=== PATIENT | male | born 1955 | race African-American/Black ===

== ENCOUNTER 2024-12-29 15:14 | Emergency (ER) | payer OTHER ==
[~2024-12-29] VITALS: Ht 175.3 cm; Wt 100.0 kg
[2024-12-29 15:17] VITALS: O2SAT 98
[2024-12-29 16:13] LABS: BASOPHILS % 1.3 % (0.0-2.0); EOSINOPHILS % 1.2 % (0.0-5.0); HEMATOCRIT. 45.9 % (42.0-52.0); HEMOGLOBIN. 15.5 g/dL (14.0-18.0); LYMPHOCYTES % 12.8 % (20.0-50.0); MEAN PLATELET VOLUME 8.5 fl (7.4-10.4); MONOCYTES % 9.7 % (2.0-8.0); NEUTROPHILS % 75.0 % (40.0-76.0); PLATELET 147 x1000/uL (130-400); RED BLOOD CELL COUNT 4.92 mill/uL (4.7-6.1); RED CELL DISTRIBUTION WIDTH 15.1 % (11.6-14.6)
[2024-12-29 16:26] LABS: INR 1.1
[2024-12-29 16:43] LABS: CREATININE 1.5 mg/dL (0.6-1.3); TROPONIN I HIGH SENSITIVITY 9 ng/L (3.0-53); UREA NITROGEN BLOOD 15 mg/dL (9-23)
[2024-12-29 16:45] LABS: ASPARTATE AMINOTRANSFERASE 25 IU/L (<34); BILIRUBIN DIRECT 0.4 mg/dL (<=3.0); BILIRUBIN TOTAL 0.9 mg/dL (0.1-1.0); PROTEIN TOTAL 7.0 g/dL (6.0-8.3)
[2024-12-29] MEDS: SODIUM CHLORIDE 0.9% 500 ML IV ONE (17:06)
[2024-12-29 20:10] VITALS: BP 176/133; PULSE 79; RESP 16; TEMP 36.9; O2SAT 97
[2024-12-29] MEDS: HYDRALAZINE 20MG/ML VIAL IV ONE (20:17)
== END 2024-12-29 20:48 | disposition short-term general hospital (02) ==
LOC: ER 15:14 → CMPBEDREQ 12-30 07:22
DX: R55 Syncope and collapse (principal); E78.5 Hyperlipidemia, unspecified; I10 Essential (primary) hypertension; I25.10 Atherosclerotic heart disease of native coronary artery without angina pectoris; I48.91 Unspecified atrial fibrillation; Z95.1 Presence of aortocoronary bypass graft
CPT/HCPCS: 99285; 96374; 70450; 71045; 80076; 80048; 83880; 83735; 85025; 85610; 85730; 86850; 86900; 86901; 84484; 36415; 93005; J0360; J7040